=== PATIENT | female | born 1955 | race Caucasian/White ===

== ENCOUNTER 2022-04-19 12:04 | Emergency (ER) | payer OTHER, SELFPAY | END 2022-04-19 15:07 | disposition left against medical advice (07) | PROVIDERS: Emergency Provider Emergency Medicine; PCP Internal Medicine | DX: R42 Dizziness and giddiness (principal) ==

== ENCOUNTER 2024-06-25 20:29 | Emergency (ER) | payer MEDICARE, SELFPAY ==
--- NOTE | 2024-06-25 | ECG_ITS ---
Test Reason : CP Blood Pressure : / mmHG Vent. Rate : 080 BPM Atrial Rate : 080 BPM P-R Int : 156 ms QRS Dur : 076 ms QT Int : 364 ms P-R-T Axes : 005 -09 000 degrees QTc Int : 419 ms Normal sinus rhythm Normal ECG When compared with ECG of 20-MAR-2011 22:03, Aberrant conduction is no longer Present Referred By: Generic ED Physician Electronically Signed By:PATEL KING MD
[2024-06-25 20:52] VITALS: BP 133/88; PULSE 85; RESP 18; TEMP 36.8; O2SAT 94; BMI 31.7
--- NOTE | 2024-06-25 20:55 | ED_ITS ---
HPI - General Adult General Chief complaint: Chest Pain Stated complaint: chest pain Time Seen by Provider: 06/26/24 01:55 History of Present Illness ED Provider: Jovita ARCHER narrative: The patient is a 68-year-old female who says that starting this morning she had several episodes of chest pain across her lower chest. These episodes were very brief, in the order of 1-2 seconds. On the whole she experienced these episodes of discomfort with a frequency of less than 1 per hour. She estimates she may have had about 6 or 7 episodes throughout the day. She has not had any associated shortness of breath, diaphoresis, nausea. She has never had pains like this before. She was worried it might be something to do with her heart and came to the emergency room. She was not having any pain at the time that I interviewed her. Related Data Home Medications ?Medication ?Instructions ?Recorded ?Confirmed atenolol 50 mg tablet 50 mg PO DAILY 12/22/20 01/03/21 atorvastatin 40 mg tablet 40 mg PO DAILY 12/22/20 01/03/21 loratadine 10 mg tablet (Claritin) 10 mg PO DAILY 01/03/21 01/03/21 cetirizine 10 mg tablet (Zyrtec) 10 mg PO DAILY PRN 09/22/21 lisinopril 10 1 tab PO DAILY 12/26/21 mg-hydrochlorothiazide 12.5 mg tablet Previous Rx's ?Medication ?Instructions ?Recorded phenazopyridine 200 mg tablet 200 mg PO TID 3 days #9 tabs 12/26/21 (Pyridium) sulfamethoxazole 800 1 tab PO BID 5 days #10 tabs 12/26/21 mg-trimethoprim 160 mg tablet (Bactrim DS) Allergies Allergy/AdvReac Type Severity Reaction Status Date / Time lactose [LACTOSE] Allergy Intermediate GI UPSET Verified 06/25/24 20:55 amoxicillin Allergy Unknown Diarrhea Verified 06/25/24 20:55 Review of Systems 2 Review of Systems: Yes all other systems are reviewed and are negative PMFSH Social History Social History Advance Directives: No Advance Directives Information Provided: No Do you have a plan to hurt others: No Plan Physical Exam ED Vital Signs: Vital Signs - 24 hr 06/25/24 20:52 Temperature 98.3 F Pulse Rate 85 Respiratory Rate 18 Blood Pressure 133/88 Pulse Oximetry 94 Oxygen Delivery Method Room Air BMI result Body Mass Index 31.7 Const Other: The patient is awake, alert, pleasant, cooperative. She does not look in distress at all. HENMT Head: Yes normal to inspection Face and sinus: Yes normal facial exam Mouth: Normal oral and palatal mucosa present and moist mucous membranes Eyes General: appearance normal, both eyes and all related structures Neck Neck: Yes no JVD Resp Effort & Inspection: normal respiratory effort Auscultation: clear to auscultation bilaterally Cardio Rate: regular rate Rhythm: regular rhythm Heart sounds: S1 normal heart sound present and S2 normal heart sound present GI Other: Abdomen is soft and nontender. Skin Other: The skin is dry and unremarkable. Neuro Other: The patient is awake, alert, pleasant, cooperative. She has a normal mental status. Cranial nerves are grossly intact. She moves her extremities normally and appropriately. Extrem Other: No peripheral edema. No calf swelling or tenderness. Course Course Course Narrative: RME, this is a rapid medical exam performed by Scotty Lomeli please refer to primary provider for complete H&P- 68-year-old female presents for evaluation chest pain since this morning. Her pain is waxing and waning. She took medication for heartburn with no improvement. Plan for cardiac workup Medical Decision Making Medical Decision Making MDM Narrative: The patient is a 68-year-old female who presents for evaluation of chest pains that she has been experiencing throughout the day. She describes extremely brief episodes, lasting on the order of 1-2 seconds. She has had perhaps 6 or 7 such episodes throughout the day today. She looks entirely well. The patient's history is not suggestive of an acute coronary syndrome or other dangerous process. The patient has an unremarkable EKG and labs. I reassured the patient that her symptoms do not seem suggestive of an acute coronary syndrome. I do not really have a good alternative explanation for her symptoms but I can not think of any dangerous process that would have such brief, nearly instantaneous, episodes of discomfort. The patient will be discharged with reassurance and should follow up with her PCP. She should return if she has worsening symptoms. Lab Data 06/25/24 21:32 06/25/24 21:32 Labs: Lab Results 06/25/24 Range/Units 21:32 WBC 6.8 (4.8-10.8) X10*3/uL RBC 4.23 (4.20-5.50) X10*6/uL Hgb 13.6 (12.0-16.0) g/dl Hct 39.0 (37.0-47.0) % MCV 92.2 (80.0-98.0) fL MCH 32.2 (27.0-33.0) pg MCHC 34.9 (31.0-35.0) g/dl RDW 11.9 (11.0-16.0) % Plt Count 192 (160-400) X10*3/uL MPV 9.7 (9.4-12.3) fL Immature Gran % (Auto) 0.1 (0.0-0.4) % Neut % (Auto) 56.7 (45-73) % Lymph % (Auto) 30.1 (20-40) % [place] % (Auto) 11.5 H (2-11) % Eos % (Auto) 0.9 (0-4) % Baso % (Auto) 0.7 (0-2) % Lymph # (Auto) 2.1 (1.2-4.9) X10*3/uL [place] # (Auto) 0.8 (0.1-1.2) X10*3/uL Eos # (Auto) 0.1 (0.0-0.4) X10*3/uL Baso # (Auto) 0.1 (0.0-0.2) X10*3/uL Abs Immat Gran (auto) 0.01 (0.00-0.03) X10*3/uL Absolute Neuts (auto) 3.9 (2.0-8.3) x10*3/uL Absolute Nucleated RBC 0.000 (0.0-0.012) X10*3/uL Nucleated RBC % (auto) 0.0 (0.0-0.2) /100WBC PT 11.4 (10.9-12.4) SEC INR 1.0 (0.9-1.1) Sodium 136 (135-145) mmol/L Potassium 4.5 (3.3-5.1) mmol/L Chloride 104 (96-108) mmol/L Carbon Dioxide 23 (22-29) mmol/L Anion Gap 14 (12-20) BUN 25 H (9-16) mg/dL Creatinine 0.91 (0.5-1.4) mg/dL Estim Creat Clear Calc 61.4 Estimated GFR > 60 Random Glucose 116 H (60-115) mg/dL Calcium 8.9 (8.4-10.2) mg/dL Total Bilirubin 0.4 (0.0-1.0) mg/dL AST 21 (5-31) U/L ALT 23 (0-31) U/L Alkaline Phosphatase 88 (39-117) U/L Troponin I High Sens < 2.7 (<3.5-17.0) ng/L Total Protein 7.0 (6.5-8.0) g/dL Albumin 4.1 (3.5-5.0) g/dL Discharge Plan Discharge Clinical Impression: Chest pain Patient Disposition: Home, Self-Care Additional Instructions: Your testing in the emergency room is very reassuring. Additionally your description of the symptoms is also very reassuring. The extremely brief duration of these pains is very reassuring. This is not a description of symptoms that suggest a heart attack or similarly dangerous process. I would try to simply ignore these very brief pains. You may participate in any exertional activity would like. Please follow up with your regular doctor if the pains continued to bother you. If at any point you have persistent discomfort or developed shortness of breath or sweats or nausea, please return to the emergency room for re-evaluation. Prescriptions: No Action atenolol 50 mg tablet 50 mg PO DAILY atorvastatin 40 mg tablet 40 mg PO DAILY loratadine [Claritin] 10 mg tablet 10 mg PO DAILY cetirizine [Zyrtec] 10 mg tablet 10 mg PO DAILY PRN lisinopril-hydrochlorothiazide 10-12.5 mg tablet 1 tab PO DAILY sulfamethoxazole-trimethoprim [Bactrim DS] 800-160 mg tablet 1 tab PO BID 5 Days Qty: 10 0RF phenazopyridine [Pyridium] 200 mg tablet 200 mg PO TID 3 Days Qty: 9 0RF Referrals: Kwame Sosa MD [Primary Care Provider] - (Chest pains) Interventions: ED Discharge Assessment Last Done: 06/26/24 02:35 Discharge Date/Time: 06/26/24 02:36 Print Language: Luxembourgish
[2024-06-25 21:36] LABS: MANUAL DIFF FLAG NO
[2024-06-25 21:37] LABS: Basophils Absolute Auto 0.1 X10*3/uL (0.0-0.2); Basophils Percent Auto 0.7 % (0-2); Eosinophils Absolute Auto 0.1 X10*3/uL (0.0-0.4); Eosinophils Percent Auto 0.9 % (0-4); Hemoglobin 13.6 g/dl (12.0-16.0); Imm Gran Abs Auto 0.01 X10*3/uL (0.00-0.03); Imm Gran Pct Auto 0.1 % (0.0-0.4); Lymphocytes Absolute Auto 2.1 X10*3/uL (1.2-4.9); Lymphocytes Percent Auto 30.1 % (20-40); Mean Corpuscular HGB Conc 34.9 g/dl (31.0-35.0); Mean Corpuscular Hemoglobin 32.2 pg (27.0-33.0); Mean Corpuscular Volume 92.2 fL (80.0-98.0); Mean Platelet Volume 9.7 fL (9.4-12.3); Monocytes Absolute Auto 0.8 X10*3/uL (0.1-1.2); Monocytes Percent Auto 11.5 % (2-11); Neutrophils Absolute Auto 3.9 x10*3/uL (2.0-8.3); Neutrophils Percent Auto 56.7 % (45-73); Platelet Count 192 X10*3/uL (160-400); Red Blood Count 4.23 X10*6/uL (4.20-5.50); Red Cell Distribution Width 11.9 % (11.0-16.0); White Blood Count 6.8 X10*3/uL (4.8-10.8)
[2024-06-25 21:43] LABS: Prothrombin Time 11.4 SEC (10.9-12.4)
[2024-06-25 21:54] LABS: Alanine Aminotransferase 23 U/L (0-31); Albumin Level 4.1 g/dL (3.5-5.0); Alkaline Phosphatase 88 U/L (39-117); Anion Gap 14 (12-20); Aspartate Amino Transferase 21 U/L (5-31); Bilirubin Total 0.4 mg/dL (0.0-1.0); Blood Urea Nitrogen 25 mg/dL (9-16); Calcium 8.9 mg/dL (8.4-10.2); Carbon Dioxide 23 mmol/L (22-29); Chloride 104 mmol/L (96-108); Creatinine Clr Calc Pharmacy 61.4; Estimated Glomerular Filt Rate > 60; Glucose Random 116 mg/dL (60-115); Potassium 4.5 mmol/L (3.3-5.1); Sodium 136 mmol/L (135-145)
[2024-06-25 22:03] LABS: Troponin-I High Sensitivity < 2.7 ng/L (<3.5-17.0)
[2024-06-26 02:35] VITALS: BP 121/71; PULSE 80; RESP 18; TEMP 36.7; O2SAT 96
== END 2024-06-26 02:36 | disposition home or self-care (01) ==
PROVIDERS: Physician Assistant; Emergency Provider Emergency Medicine; PCP Internal Medicine
DX: R07.9 Chest pain, unspecified (principal); Z79.899 Other long term (current) drug therapy
CPT/HCPCS: 36415; 80053; 84484; 85025; 85610; 93005; 99283; 99284

== ENCOUNTER → 2024-06-25 20:37 | Outpatient (BNV) | payer MEDICARE, SELFPAY | PROVIDERS: Emergency Provider Emergency Medicine; PCP Internal Medicine; Visit Provider Internal Medicine Cardiovascular Disease | DX: R07.9 Chest pain, unspecified (principal) | CPT/HCPCS: 93010 ==